=== PATIENT | male | born 1985 | race Caucasian/White ===

== ENCOUNTER 2023-06-06 10:06 | Emergency (ER) | payer SELFPAY ==
[2023-06-06 10:11] VITALS: BP 157/108; PULSE 89; RESP 20; TEMP 36.7; O2SAT 97; BMI 34.0
--- NOTE | 2023-06-06 10:24 | ED.DENTAL1 ---
HPI - Dental/Oral General Chief complaint: Dental/Oral Stated complaint: MOUTH PAIN Time Seen by Provider: 06/06/23 10:14 Source: patient Mode of arrival: walk-in Limitations: no limitations History of Present Illness HPI Narrative: 38-year-old male presents for dental pain. He has pain in the right upper dentition and has a dental appointment in 4 days. He was told by his dentist to come here to get antibiotics. No fever or difficulty breathing or swallowing. The pain is moderate and continuous. Related Data Previous Rx's Medication Instructions Recorded ibuprofen 800 mg tablet 800 mg PO Q8H PRN pain #20 tabs 06/06/23 penicillin V potassium 250 mg 250 mg PO QID 10 days #40 tabs 06/06/23 tablet Allergies Allergy/AdvReac Type Severity Reaction Status Date / Time No Known Drug Allergies Allergy Verified 06/06/23 10:10 Review of Systems ROS Narrative A ten point review of systems is negative except as noted above. PFSH PFSH Social History Smoking status: Heavy tobacco smoker Exam Narrative Exam Narrative: Nurses note and vital signs reviewed and patient is not hypoxic. General: The patient appears well and in no apparent distress. Patient is resting comfortably on cart. Skin: Warm, dry, no pallor noted. There is no rash noted. Head: Normocephalic, atraumatic Eye: Normal conjunctiva, no drainage Ears, Nose, Mouth, and Throat: oral mucosa is moist. Dental caries noted in the right upper dentition. No bleeding or pus present. No facial swelling. No swelling to the floor of his mouth. Cardiovascular: Regular Rate and Rhythm Respiratory: Patient is in no distress, no accessory muscle use Back: non-tender GI: Nontender Musculoskeletal: No joint swelling Neurological: A&O, normal speech Psychiatric: Cooperative Constitutional Vital Signs, click to edit/add: Last Vital Signs Temp 98.1 F 06/06/23 10:11 Pulse 89 06/06/23 10:11 Resp 20 06/06/23 10:11 BP 157/108 H 06/06/23 10:11 Pulse Ox 97 06/06/23 10:11 O2 Del Method Room Air 06/06/23 10:11 Course Vital Signs Vital signs: Vital Signs Temperature 98.1 F 06/06/23 10:11 Pulse Rate 89 06/06/23 10:11 Respiratory Rate 20 06/06/23 10:11 Blood Pressure 157/108 H 06/06/23 10:11 Pulse Oximetry 97 06/06/23 10:11 Oxygen Delivery Method Room Air 06/06/23 10:11 Temperature 98.1 F 06/06/23 10:11 Pulse Rate 89 06/06/23 10:11 Respiratory Rate 20 06/06/23 10:11 Blood Pressure 157/108 H 06/06/23 10:11 Pulse Oximetry 97 06/06/23 10:11 Oxygen Delivery Method Room Air 06/06/23 10:11 MDM - Dental/Oral MDM Narrative Medical decision making narrative: He is provided prescriptions for penicillin and Motrin and will see his dentist in 4 days. Differential Diagnosis Differential diagnosis: Likely gingival abscess, dental caries, toothache, dental abscess and fracture of tooth Discharge Plan Discharge Stand Alone Forms: Portal Instructions Chief Complaint: Dental/Oral Clinical Impression: Toothache Patient Disposition: Home, Self-Care Time of Disposition Decision: 10:23 Condition: Good Mode of Transportation: Private Vehicle Prescriptions / Home Meds: New penicillin V potassium 250 mg tablet 250 mg PO QID 10 Days Qty: 40 0RF ibuprofen 800 mg tablet 800 mg PO Q8H PRN (Reason: pain) Qty: 20 0RF Instructions: Toothache (ED) Referrals: Blake Sandra MD [Primary Care Provider] - 1 week
== END 2023-06-06 10:29 | disposition home or self-care (01) ==
PROVIDERS: Emergency Provider Emergency Medicine; PCP Family Medicine
DX: K08.89 Other specified disorders of teeth and supporting structures (principal); F17.210 Nicotine dependence, cigarettes, uncomplicated
CPT/HCPCS: 99283

== ENCOUNTER 2023-08-26 09:45 | Outpatient (OUT) | payer SELFPAY ==
[2023-08-26 10:18] LABS: Basophils Percent Auto 0.4 % (0.2-2.0); Eosinophils Absolute Auto 0.2 10^3/uL (0.0-0.7); Eosinophils Percent Auto 1.7 % (0.9-7.0); Hemoglobin 18.8 g/dL (14.0-18.0); Immature Granulocytes Abs Auto 0.01 10^3/uL (0.00-0.03); Immature Granulocytes Pct Auto 0.1 % (0.0-0.5); Lymphocytes Absolute Auto 4.3 10^3/uL (1.2-3.8); Lymphocytes Percent Auto 43.9 % (20.5-60.0); Mean Corpuscular HGB Conc 34.2 g/dL (29.9-35.2); Mean Corpuscular Hemoglobin 28.5 pg (25.9-34.0); Mean Corpuscular Volume 83.3 fL (80.0-94.0); Mean Platelet Volume 10.6 fL (9.5-13.5); Monocytes Absolute Auto 0.6 10^3/uL (0.3-0.8); Monocytes Percent Auto 6.2 % (1.7-12.0); Neutrophils Absolute Auto 4.7 10^3/uL (1.4-6.5); Neutrophils Percent Auto 47.7 % (43.0-75.0); Platelet Count 260 10^3/uL (150-450); Red Cell Distribution Width 13.3 % (11.0-15.0); White Blood Count 9.8 10^3/uL (4.0-11.0)
[2023-08-26 13:10] LABS: Alanine Aminotransferase 90 U/L (16-63); Albumin Globulin Ratio 0.9; Albumin Level 4.3 g/dL (3.4-5.0); Alkaline Phosphatase 88 U/L (46-116); Amylase 70 U/L (25-115); Aspartate Amino Transferase 55 U/L (15-37); BUN Creatinine Ratio 14.3; Bilirubin Total 1.3 mg/dL (0.2-1.0); Calcium 9.4 mg/dL (8.5-10.1); Carbon Dioxide 24.9 mmol/L (21.0-32.0); Chloride 104 mmol/L (98-107); Chol HDL Ratio 5.3; Cholesterol 187 mg/dL (<=200); Estimated GFR (African America >60 (>=60); Estimated GFR (Non-African Ame >60 (>=60); Free T3 3.63 pg/mL (2.18-3.98); Globulin 4.6 g/dL; Glucose 113 mg/dL (74-106); HDL Cholesterol 35 mg/dL (40-60); Potassium 3.9 mmol/L (3.5-5.1); Sodium 141 mmol/L (136-145); Thyroid Stimulating Hormone 2.815 uIU/mL (0.358-3.740); Total Protein 8.9 g/dL (6.4-8.2); Triglycerides 121 mg/dL (<=150); VLDL CHOLESTEROL 24.2 mg/dL
[2023-08-26 14:01] LABS: Estimated Average Glucose 111 mg/dL; Glycohemoglobin A1C 5.5 % (4.5-6.2)
[2023-08-27 09:12] LABS: Insulin 25.8 uIU/mL (2.6-24.9)
[2023-08-27 18:13] LABS: Thyroglobulin Antibody <1.0 IU/mL (0.0-0.9); Thyroid Peroxidase (TPO) Ab 19 IU/mL (0-34)
[2023-08-29 13:08] LABS: HBsAg Screen Negative (Negative); HCV Ab Reactive (Non Reactive); Hep A Ab, IgM Negative (Negative); Hep B Core Ab, IgM Negative (Negative)
== END 2023-08-26 09:46 | disposition home or self-care (01) ==
LOC: LAB 09:47
PROVIDERS: PCP Family Medicine; Visit Provider Family Medicine
DX: R63.4 Abnormal weight loss (principal); E78.5 Hyperlipidemia, unspecified; R73.09 Other abnormal glucose; E03.9 Hypothyroidism, unspecified
CPT/HCPCS: 36415; 80053; 80061; 80074; 82150; 83036; 83525; 83690; 84436; 84443; 84481; 85025; 86376; 86800